=== PATIENT | male | born 2000 | race Caucasian/White ===

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

== ENCOUNTER 2022-12-21 18:24 | Emergency (ER) | payer MEDICAID ==
[~2022-12-21] VITALS: Ht 170.2 cm; Wt 65.8 kg
[2022-12-21] VITALS (8 sets, daily range): BP systolic 100–124; BP diastolic 55–69
[~2022-12-21 18:24] MED LIST changes: +CIPROFLOXACN500 MG PO
[2022-12-21] MEDS ORDERED: NAPROXEN500 MG PO (19:50)
[2022-12-21] MEDS ORDERED: METHOCARBAMOL500 MG PO (19:50)
== END 2022-12-21 20:13 | disposition home or self-care (01) ==
LOC: ED 18:24
DX: S46.912A Strain of unspecified muscle, fascia and tendon at shoulder and upper arm level, left arm, initial encounter (principal); S20.412A Abrasion of left back wall of thorax, initial encounter; V89.9XXA Person injured in unspecified vehicle accident, initial encounter

== ENCOUNTER 2023-01-20 22:00 | Emergency (ER) | payer OTHER, MEDICAID ==
[~2023-01-20] VITALS: Ht 170.2 cm; Wt 81.0 kg
[~2023-01-20 22:00] MED LIST changes: +METHOCARBAMOL500 MG PO; +NAPROXEN500 MG PO
[2023-01-20 22:07] VITALS: BP 122/84
[2023-01-20 22:16] VITALS: BP 99/64
[2023-01-20 22:30] VITALS: BP 104/62
[2023-01-20 22:45] VITALS: BP 111/74
[2023-01-20 23:00] VITALS: BP 93/57
[2023-01-20 23:45] VITALS: BP 108/67
== END 2023-01-20 23:50 | disposition home or self-care (01) | DRG 159 ==
LOC: ED 22:00
DX: S01.511A Laceration without foreign body of lip, initial encounter (principal); S16.1XXA Strain of muscle, fascia and tendon at neck level, initial encounter; V43.62XA Car passenger injured in collision with other type car in traffic accident, initial encounter